=== PATIENT | female | born 1975 | race Caucasian/White ===

== ENCOUNTER → 2017-12-11 | Outpatient (REF) | payer BC | LOC: M SFHCLERA 20:05 | DX: R50.9 Fever, unspecified (principal) ==

== ENCOUNTER → 2017-12-11 | Outpatient (CLI) | payer BC | LOC: M LRY 19:55 | DX: R50.9 Fever, unspecified (principal); R05 Cough | CPT/HCPCS: 71046 ==

== ENCOUNTER → 2019-04-08 | Outpatient (REF) | payer BC | LOC: M SFHCLERA 14:30 | PROVIDERS: ATTEND Nurse Practitioner Family | DX: R53.81 Other malaise (principal) ==